=== PATIENT | male | born 1935 | race Caucasian/White ===

== ENCOUNTER 2021-02-14 02:58 | Emergency (ER) | payer BC, OTHER ==
[2021-02-14 03:06] VITALS: BMI 24.5
[2021-02-14 04:03] LABS: BASO % 0.5 % (0-2.0); EOS % 13.8 % (0-4.5); HEMATOCRIT 27.8 % (35.4-49); HEMOGLOBIN 8.9 GM/dL (11.7-16.9); LYMPH % 10.3 % (8-40); MCH 28.3 pg (25.7-33.7); MCHC 32.2 g/dl (32.0-35.9); MEAN CELL VOLUME 88.1 fl (80-96); MEAN PLT VOLUME 10.1 fl (7.5-11.1); MONO % 6.1 % (3.8-10.2); NEUT % 69.3 % (42.8-82.8); RBC 3.16 M/mm3 (4.00-5.60); RDW 17.5 % (11.9-15.9)
[2021-02-14 04:19] LABS: PLATELET COUNT 1218 10^3/uL (134-434); WHITE BLOOD COUNT 43.9 K/mm3 (4.0-10.0)
[2021-02-14 04:20] LABS: CHLORIDE 107 mmol/L (98-107); SODIUM 137 mmol/L (136-145)
[2021-02-14 04:22] LABS: CALCIUM 9.2 mg/dL (8.5-10.1)
[2021-02-14 04:24] LABS: ALBUMIN 3.6 g/dl (3.4-5.0); ANION GAP 6 MMOL/L (8-16); BLOOD UREA NITROGEN 34.1 mg/dL (7-18); CO2 24 mmol/L (21-32); GLUCOSE,RANDOM 94 mg/dL (74-106); MAGNESIUM 2.5 mg/dL (1.8-2.4)
[2021-02-14 04:27] LABS: PHOSPHOROUS 4.3 mg/dL (2.5-4.9); SGOT/AST 28 U/L (15-37); SGPT/ALT 21 U/L (13-61)
[2021-02-14 04:28] LABS: BILIRUBIN,TOTAL 0.2 mg/dL (0.2-1)
[2021-02-14 04:29] LABS: TOT PROT 7.7 g/dl (6.4-8.2)
[2021-02-14 04:30] LABS: ALK PHOS 123 U/L (45-117)
[2021-02-14 06:35] LABS: CALCIUM 9.3 mg/dL (8.5-10.1)
[2021-02-14 06:36] LABS: BLOOD UREA NITROGEN 33.2 mg/dL (7-18)
[2021-02-14 06:38] LABS: CREATININE 0.9 mg/dL (0.55-1.3)
[2021-02-14 07:24] LABS: CHLORIDE 105 mmol/L (98-107); SODIUM 136 mmol/L (136-145)
[2021-02-14 07:26] LABS: CALCIUM 9.2 mg/dL (8.5-10.1); CO2 25 mmol/L (21-32)
[2021-02-14 07:27] LABS: BLOOD UREA NITROGEN 32.5 mg/dL (7-18); GLUCOSE,RANDOM 69 mg/dL (74-106)
[2021-02-14] MEDS ORDERED: DEXTROSE 50%-WATER - 25 GM/50 ML VIAL IVPUSH ONE (07:29)
[2021-02-14] MEDS ORDERED: INSULIN REGULAR HUMAN 100 UNITS/ML *VIAL IVPUSH ONE (07:29)
[2021-02-14] MEDS ORDERED: ALBUTEROL SO4 HFA INHALER IH ONE ×2 (07:30→07:50)
[2021-02-14] MEDS ORDERED: SODIUM BICARBONATE 8.4% 50 MEQ/50 ML VIAL IV ONE (07:31)
[2021-02-14 07:33] LABS: ANION GAP 6 MMOL/L (8-16)
[2021-02-14] MEDS ORDERED: DEXTROSE 50%-WATER 25 GM/50 ML DISP.SYRIN ONE (07:51)
[2021-02-14] MEDS ORDERED: SODIUM BICARBONATE 8.4% - 50 ML ONE (07:51)
[2021-02-14 08:35] LABS: ANISOCYTOSIS 1+; MACROCYTOSIS 0; PLATELET ESTIMATE INCREASED
[2021-02-14 11:18] VITALS: BP 152/79; PULSE 92; TEMP 98.1
== END 2021-02-14 14:40 | disposition home or self-care (01) ==
LOC: JER 02:58
PROC: 3E033NZ Introduction of Analgesics, Hypnotics, Sedatives into Peripheral Vein, Percutaneous Approach (ICD-10-PCS; principal; 2021-02-14)
PROC: 3E013VG Introduction of Insulin into Subcutaneous Tissue, Percutaneous Approach (ICD-10-PCS; 2021-02-14)
PROC: 3E0F7GC Introduction of Other Therapeutic Substance into Respiratory Tract, Via Natural or Artificial Opening (ICD-10-PCS; 2021-02-14)
PROC: 3E033GC Introduction of Other Therapeutic Substance into Peripheral Vein, Percutaneous Approach (ICD-10-PCS; 2021-02-14)
DX: R79.9 Abnormal finding of blood chemistry, unspecified (principal)
CPT/HCPCS: 36415; 71045-TC-FY; 80048; 80053; 82550; 82962; 83735; 84100; 84132; 84484; 85025; 86850; 86900; 86901; 93005; 93010; 99285-25